=== PATIENT | female | born 2000 | race Caucasian/White ===

== ENCOUNTER 2022-08-18 17:56 | Emergency (ER) | payer BC ==
[2022-08-18 19:20] VITALS: BP 125/82; PULSE 70
== END 2022-08-18 21:24 | disposition home or self-care (01) ==
LOC: JD.ED 17:56
DX: R06.02 Shortness of breath (principal)
CPT/HCPCS: 36415; 71045; 71045-26; 80053; 83880; 84484; 85025; 93005; 99285

== ENCOUNTER 2024-05-06 10:32 | Inpatient (IN) | payer BC ==
[2024-05-06] MEDS ORDERED: Sodium Chloride 0.9% 10 ML Syringe FLUSH PRN ×2 (11:46→12:06)
[2024-05-06] MEDS ORDERED: Ondansetron 4 MG/2 ML SDV IVPUSH PRN (11:46)
[2024-05-06] MEDS ORDERED: Oxytocin/0.9 % Sodium Chloride 30 UNIT/500 ML BAG IV SCH (12:00)
[2024-05-06] MEDS: Lactated Ringers 1,000 ML IV SCH (12:02)
[2024-05-06] MEDS: Citric Acid/Sodium Citrate Solution 30 ML Cup PO ONE (12:05)
[2024-05-06] MEDS: Metoclopramide 10 MG/2 ML SDV IVPUSH ONE (12:05)
[2024-05-06] MEDS ORDERED: ceFAZolin 2 GM Vial ONE (12:08)
[2024-05-06] MEDS ORDERED: Succinylcholine 200 MG/10 ML MDV ONE (12:08)
[2024-05-06] MEDS ORDERED: fentaNYL 250 MCG/5 ML SDV ONE (12:08)
[2024-05-06] MEDS ORDERED: Lactated Ringers 1,000 ML ONE (12:08)
[2024-05-06] MEDS ORDERED: Propofol 200 MG/20 ML SDV ONE ×3 (12:08→12:27)
[2024-05-06 12:15] LABS: BASOPHILS PERCENT AUTO 0.4 % (0.0-1.0); EOSINOPHILS PERCENT AUTO 0.3 % (0.0-6.0); HEMATOCRIT 34.8 % (37.0-47.0); HEMOGLOBIN 11.4 gm/dl (12.0-16.0); IMMATURE GRAN ABSOLUTE AUTO 0.14 K/mm3 (0.00-0.05); IMMATURE GRAN PERCENT AUTO 1.4 % (0.0-0.4); LYMPHOCYTES ABSOLUTE AUTO 2.2 K/mm3 (1.0-4.8); LYMPHOCYTES PERCENT AUTO 20.9 % (24.0-44.0); MEAN CORPUSCULAR HEMOGLOBIN 27.9 pg (28.0-32.0); MEAN CORPUSCULAR HGB CONC 32.8 g/dl (32.0-36.0); MEAN CORPUSCULAR VOLUME 85.3 fl (83.0-99.0); MEAN PLATELET VOLUME 10.9 fl (9.4-12.3); MONOCYTES ABSOLUTE AUTO 0.6 K/mm3 (0.0-0.8); MONOCYTES PERCENT AUTO 5.8 % (0.0-8.0); NEUTROPHILS ABSOLUTE AUTO 7.3 K/mm3 (1.8-7.7); NEUTROPHILS PERCENT AUTO 71.2 % (41.0-71.0); PLATELET COUNT,PLT 288 K/mm3 (150-400); RED BLOOD CELL COUNT 4.08 M/mm3 (4.10-5.30); WHITE BLOOD CELL COUNT,WBC 10.27 K/mm3 (3.9-11.3)
[2024-05-06] MEDS ORDERED: Lactated Ringers 1,000 ML IV SCH (12:15)
[2024-05-06] MEDS ORDERED: Lidocaine 1% 5 ML VIAL ONE (12:28)
[2024-05-06 12:46] LABS: PROTHROMBIN TIME 9.6 SECONDS (9.7-12.0)
[2024-05-06 12:48] LABS: PTT,PARTIAL THROMBOPLSTIN TIME 24.5 SECONDS (21.7-31.4)
[2024-05-06 12:50] LABS: INR < 0.93
[2024-05-06] MEDS ORDERED: dexmedeTOMIDine HCl 200 MCG/2 ML SDV ONE (13:00)
[2024-05-06] MEDS ORDERED: Ketorolac 30 MG/ML SDV ONE (13:23)
[2024-05-06] MEDS ORDERED: Naloxone 0.4 MG/ML SDV IVPUSH PRN (13:33)
[2024-05-06] MEDS ORDERED: diphenhydrAMINE 50 MG/ML SDV IVPUSH PRN (13:33)
[2024-05-06] MEDS ORDERED: ePHEDrine 50 MG/ML SDV IVPUSH PRN (13:33)
[2024-05-06] MEDS: fentaNYL 100 MCG/2 ML SDV IVPUSH PRN (13:52)
[2024-05-06] MEDS ORDERED: Acetaminophen 325 MG Tab PO SCH (14:00)
[2024-05-06] MEDS: Dextrose 5%-Lactated Ringers 1,000 ML IV SCH (14:30)
[2024-05-06] MEDS: Acetaminophen 325 MG Tab PO SCH (15:23)
[2024-05-06] MEDS: Ibuprofen 600 MG Tab PO SCH (19:56)
[2024-05-06] MEDS: Sennosides 8.6 MG Tab PO SCH (20:00)
[2024-05-06] MEDS ORDERED: Sodium Chloride 0.9% 10 ML Syringe FLUSH SCH (21:00)
[2024-05-07] MEDS: oxyCODONE 5 MG Tab PO PRN (01:07)
[2024-05-07 06:10] LABS: HEMATOCRIT 27.8 % (37.0-47.0); MEAN CORPUSCULAR HEMOGLOBIN 28.8 pg (28.0-32.0); MEAN CORPUSCULAR HGB CONC 32.7 g/dl (32.0-36.0); PLATELET COUNT,PLT 217 K/mm3 (150-400); RED BLOOD CELL COUNT 3.16 M/mm3 (4.10-5.30); WHITE BLOOD CELL COUNT,WBC 12.15 K/mm3 (3.9-11.3)
[2024-05-07 06:23] LABS: HEMOGLOBIN 9.1 gm/dl (12.0-16.0)
[2024-05-07] MEDS: Ferrous Sulfate 324 MG Tab.EC PO SCH (08:43)
[2024-05-07] MEDS: HYDROmorphone 0.5 MG/0.5 ML Syringe IVPUSH ONE (08:55)
[2024-05-07] MEDS: Sodium Chloride 0.9% 10 ML Syringe FLUSH SCH (08:56)
[2024-05-07] MEDS: ceFAZolin 2 GM in Sodium Chloride 0.9% 50 ML IV ONE (08:57)
[2024-05-07] MEDS: Famotidine 20 MG/2 ML SDV IVPUSH ONE (08:58)
[2024-05-07] MEDS: Simethicone 80 MG Tab.Chew PO PRN (09:01)
[2024-05-08 17:20] VITALS: BP 122/83; PULSE 71
== END 2024-05-08 19:16 | disposition home or self-care (01) | DRG 540 ==
LOC: JD.OBCHECK 10:32 → JD.OB 10:37 → JD.OBCHECK 11:46 → JD.OB 12:11
PROVIDERS: ADMIT Obstetrics & Gynecology; ATTEND Obstetrics & Gynecology
PROC: 10D00Z1 Extraction of Products of Conception, Low, Open Approach (ICD-10-PCS; principal; 2024-05-06 12:30)
DX: O99.42 Diseases of the circulatory system complicating childbirth (principal); I34.1 Nonrheumatic mitral (valve) prolapse; O99.892 Other specified diseases and conditions complicating childbirth; O99.344 Other mental disorders complicating childbirth; F41.9 Anxiety disorder, unspecified; O90.81 Anemia of the puerperium; D62 Acute posthemorrhagic anemia; Z3A.38 38 weeks gestation of pregnancy; Z37.0 Single live birth; Z98.890 Other specified postprocedural states; Q79.63 Vascular Ehlers-Danlos syndrome; Z28.39 Other underimmunization status
CPT/HCPCS: 01961; 36415; 59025; 85025; 85027; 85610; 85730; 86592; 86850; 86900; 86901; A9270-GY; J0330; J0690; J1885; J2704; J2765; J3010; J3490; J7120; J7121

== ENCOUNTER 2025-06-08 09:32 | Emergency (ER) | payer MEDICAID ==
[2025-06-08 10:02] LABS: BASOPHILS ABSOLUTE AUTO 0.1 K/mm3 (0.0-0.2); BASOPHILS PERCENT AUTO 0.6 % (0.0-1.0); EOSINOPHILS ABSOLUTE AUTO 0.1 K/mm3 (0.0-0.4); EOSINOPHILS PERCENT AUTO 0.8 % (0.0-6.0); IMMATURE GRAN ABSOLUTE AUTO 0.03 K/mm3 (0.00-0.05); IMMATURE GRAN PERCENT AUTO 0.3 % (0.0-0.4); LYMPHOCYTES ABSOLUTE AUTO 1.2 K/mm3 (1.0-4.8); LYMPHOCYTES PERCENT AUTO 13.4 % (24.0-44.0); MEAN PLATELET VOLUME 9.3 fl (9.4-12.3); MONOCYTES ABSOLUTE AUTO 0.4 K/mm3 (0.0-0.8); MONOCYTES PERCENT AUTO 5.0 % (0.0-8.0); NEUTROPHILS ABSOLUTE AUTO 6.9 K/mm3 (1.8-7.7); NEUTROPHILS PERCENT AUTO 79.9 % (41.0-71.0); NRBC ABSOLUTE 0.00 (0.00-0.02); NRBC PERCENT 0.0 % (0.0-0.2); PLATELET COUNT,PLT 350 K/mm3 (150-400); RED BLOOD CELL COUNT 4.79 M/mm3 (4.10-5.30); WHITE BLOOD CELL COUNT,WBC 8.65 K/mm3 (3.9-11.3)
[2025-06-08 10:23] LABS: A/G RATIO 1.2 (1-2); ALANINE AMINOTRANSFERASE,ALT 18 U/L (14-59); ASPARTATE AMNIOTRANSFERASE,AST 13 U/L (15-37); BILIRUBIN TOTAL 0.8 mg/dL (0.2-1.0); BLOOD UREA NITROGEN,BUN 13 mg/dL (7-18); CARBON DIOXIDE,CO2 29 mEq/L (21-32); CHLORIDE,CL 104 mEq/L (98-107); CREATINE KINASE,CK 59 U/L (26-192); CREATININE 0.7 mg/dL (0.55-1.02); EST CRCL DRUG DOSING (CG) 84.02 mL/min; ESTIMATED GFR 122 mL/min (>60); GLUCOSE RANDOM 88 mg/dL (70-99); POTASSIUM,K 4.3 mEq/L (3.5-5.1); PROTEIN TOTAL,TP 8.0 g/dl (6.4-8.2); SODIUM,NA 142 mEq/L (136-145)
[2025-06-08 10:28] LABS: TROPONIN I HIGH SENSITIVITY < 4 pg/mL (<=51)
[2025-06-08] MEDS: Ondansetron 4 MG/2 ML SDV IVPUSH ONE (10:32)
[2025-06-08 11:50] VITALS: BP 98/65; PULSE 60
== END 2025-06-08 12:20 | disposition home or self-care (01) ==
LOC: JD.ED 09:32
DX: R00.2 Palpitations (principal); R07.89 Other chest pain; N18.9 Chronic kidney disease, unspecified; Z79.899 Other long term (current) drug therapy
CPT/HCPCS: 36415; 71045; 71045-26; 80053; 82550; 83690; 83735; 84484; 84703; 85025; 93005; 93010; 96361; 96374; 99283; 99285-25; J2405; J7030